=== PATIENT | male | born 1955 | race Caucasian/White ===

== ENCOUNTER 2017-08-07 08:01 | Day surgery (SDC) | payer OTHER ==
[2017-08-07] MEDS ORDERED: LIDOCAINE HCL 2% 100 MG/5 ML IJ ONE (08:02)
[2017-08-07] MEDS ORDERED: Xylocaine-Mpf 2 ML IJ ONE (08:02)
[2017-08-07] MEDS ORDERED: Marcaine 0.5% SDV 10 ML IJ ONE (08:02)
[2017-08-07] MEDS ORDERED: DIPRIVAN 200 MG/20 ML IV ONE (08:02)
[2017-08-07] MEDS ORDERED: Lactated Ringers 1,000 ML IV ONE (09:12)
--- NOTE | 2017-08-07 10:24 | XRAY ---
Indication: Left knee GNB. Intraoperative fluoroscopy was provided for 31 seconds. 6 digital spot images submitted for interpretation demonstrates 3 anterior needle tips projecting over the distal femur and 1 anterior needle tip projecting over the proximal medial tibia. Correlate with intraoperative findings/report.
--- NOTE | 2017-08-07 12:29 | XRAY ---
31 seconds fluoroscopy time in surgery for left knee GNB.
--- NOTE | 2017-08-08 07:40 | OP ---
AMENDED REPORT: DATE OF PROCEDURE: 08/07/2017 0854 SURGEON: Jennyfer Simpson D.O. PREOPERATIVE DIAGNOSES: Degenerative knee disease, osteoarthritis of the knee, knee pain. POSTOPERATIVE DIAGNOSES: Degenerative knee disease, osteoarthritis of the knee, knee pain. PROCEDURE PERFORMED: Left knee genicular nerve block at four levels of superior-medial genicular nerve, superior-lateral genicular nerve, inferior-medial genicular nerve and nerve branch to suprapatellar nerve block at four levels under fluoroscopic guidance. DESCRIPTION OF THE PROCEDURE: The patient was taken to the operating room and laid in the supine position on the table. The skin over the injection site was prepped and draped in sterile fashion. Under fluoroscope, the target bony structure site was visualized. Induction agent was given as per anesthesia while vital signs were monitored. Local anesthetic agent was introduced to anesthetize the skin in the subcutaneous tissue through the injection site. Under fluoroscopic guidance, a 20-gauge spinal needle was advanced into the target genicular nerves. The preservative free 0.5 cc of 1% lidocaine and 0.5 cc of 0.25 - 0.5% Marcaine were injected into the target nerve. After the needle was removed, the skin was cleansed with alcohol and then a bandage was applied. No complications or adverse consequences were observed. The patient was returned to the holding area until stabilized before being discharged to home. The preoperative pain level is 7 out of 10 and postoperative pain level 1 out of 10. The patient will be followed up within 10 days after the injection for re-evaluation.
== END 2017-08-07 09:38 | disposition home or self-care (01) ==
LOC: SDC-PAIN 08:01
PROVIDERS: ATTEND Internal Medicine
DX: M25.562 Pain in left knee (principal); M17.12 Unilateral primary osteoarthritis, left knee; Z79.891 Long term (current) use of opiate analgesic; M15.9 Polyosteoarthritis, unspecified
CPT/HCPCS: 64450; 73560; 77003; J2704

== ENCOUNTER 2020-10-19 17:14 | Emergency (ER) | payer OTHER, MEDICARE ==
[2020-10-19 18:28] LABS: Absolute Neutrophil Ct (ANC) 6.25 (1.4-6.9); BASOPHIL % 0.3 % (0.0-0.4); Basophil (Absolute #) 0.03 (0-0.4); Eosinophil % 1.4 % (0.00-5.0); Eosinophil (Absolute #) 0.14 (0-0.5); Hematocrit 34.5 % (42-50); Hemoglobin 10.2 gm/dl (12.5-18.0); Lymphocyte (Absolute #) 2.37 (1.0-4.6); Lymphocytes % 24.2 % (24.0-44.0); Mean Cell Volume 84.4 fl (78-100); Mean Corpuscular Hemoglobin 24.9 pg (26-32); Mean Corpuscular Hgb Concent. 29.6 g/dl (32-36); Mean Platelet Volume 9.4 fl (7.5-11.0); Monocyte (Absolute #) 1.01 (0.0-1.3); Monocytes % 10.3 % (0.0-12.0); Neutrophil % 63.8 % (36.0-66.0); Platelet Count 202 K/mm3 (150-450); Red Blood Count 4.09 M/mm3 (4.1-5.6); Red Cell Distribution Width 18.8 % (11.5-14.0); White Blood Count 9.8 K/mm3 (4.0-10.5)
[2020-10-19 18:31] LABS: INR 1.39 (0.8-3.0); PROTIME 16.4 SECONDS (9.4-12.5)
[2020-10-19 18:33] LABS: PTT 31.1 SECONDS (25.1-36.5)
[2020-10-19 18:36] LABS: ALKALINE PHOSPHATASE 68 U/L (38-126); ANION GAP 11.5 MEQ/L (5-15); BLOOD UREA NITROGEN 13 mg/dL (9-20); CHLORIDE 97 mmol/L (98-107); Calcium 9.3 mg/dL (8.4-10.2); Carbon Dioxide 30 mmol/L (22-30); Creatinine 1 0.91 mg/dL (0.66-1.25); EST GLOMERULAR FILTRATION RATE > 60.0 ML/MIN; Glucose 146 mg/dL (74-106); Potassium 4.2 mmol/L (3.5-5.1); SGOT/AST 32 U/L (17-59); SGPT/ALT 16 U/L (0-50); SODIUM 134 mmol/L (137-145); Total Protein 7.4 g/dL (6.3-8.2)
--- NOTE | 2020-10-19 20:10 | ERPHSYRPT ---
- History of Present Illness Time Seen by Provider: 10/19/20 17:45 Source: patient Exam Limitations: no limitations Patient Subjective Stated Complaint: Pt states that he fell backwards in the bathroom and hit his back of his head and his lateral left side injuring his rib s Triage Nursing Assessment: Pt brought to the ER by his , gamal wnl, rates pain 8/10 in his left side, states that he drags his feet and that caused him to fall, pt has many other abrasions scattered on his body which he states are from other accidents that he has, pulses normal, doesn't appear to be in any distress Physician History: Patient is a 65-year-old male presents to our emergency department for evaluation status post fall. Patient was in his home. Patient was in his bathroom and stepped backward. Patient states he typically drags his feet which caused him to stumble and fall backwards. Patient injured his left flank as we ll as hit his head. No loss of consciousness. No neck pain. Cervical spine cleared clinically. Patient is on Coumadin. Injury occurred just prior to arrival. Pain described as an ache that is localized. No radiation. Timing/Duration: today Severity: moderate Modifying Factors: Improves With: nothing Associated Symptoms: denies symptoms, abdominal pain, No nausea, No vomiting, No shortness of breath, No diaphoresis, No headaches, No syncope, No seizure Allergies/Adverse Reactions: NSAIDS (Non-Steroidal Anti-Inflamma Allergy (Verified 10/19/20 17:42) tramadol Allergy (Verified 10/19/20 17:42) Home Medications: Amlodipine Besylate 10 mg [Norvasc 10 MG] 10 mg PO DAILY 06/07/16 [History] Aspirin [Aspirin EC] 81 mg PO DAILY 06/07/16 [History] Budesonide/Formoterol Fumarate [Symbicort 160-4.5 Mcg Inhaler] 2 puff IH BID 06/07/16 [History] Carvedilol [Coreg] 25 mg PO DAILY 06/07/16 [History] Nitroglycerin 0.4 mg Tablet [Nitrostat 0.4 MG Tablet] 0.4 mg SL Q5MIN PRN MR X 3 PRN 06/07/16 [History] Testosterone Cypionate 200 mg IM .2WEEKS 06/07/16 [History] Trazodone HCl [Desyrel] 150 mg PO HS PRN PRN 06/07/16 [History] Venlafaxine HCl [Venlafaxine HCl ER] 150 mg PO DAILY 06/07/16 [History] Alendronate Sodium 70 mg [Fosamax 70 MG] 70 mg PO WEEKLY 09/03/16 [History] Isosorbide Mononitrate 30 mg [Imdur 30 MG] 30 mg PO DAILY 07/24/17 [History] PANTOPRAZOLE 40 mg Tablet [Protonix 40MG Tablet] 40 mg PO BID 07/24/17 [History] Furosemide 40 mg [Lasix 40 MG] 40 mg PO DAILY 08/08/20 [History] Potassium Chloride 10 meq PO DAILY 08/08/20 [History] Tamsulosin HCl 0.4 mg PO DAILY 08/08/20 [History] Hx Tetanus, Diphtheria Vaccination/Date Given: No Hx Influenza Vaccination/Date Given: No Hx Pneumococcal Vaccination/Date Given: No Travel Risk - International Travel Have you traveled outside of the country in past 3 weeks: No - Coronavirus Screening Are you exhibiting any of the following symptoms?: No Close contact with a COVID-19 positive Pt in past 14-21 Days: No - Vaccine Status Have you recieved a Covid-19 vaccination: No - Review of Systems Constitutional: No Symptoms, No Fever, No Chills Eyes: No Symptoms Ears, Nose, & Throat: No Symptoms Respiratory: No Symptoms, No Cough, No Dyspnea Cardiac: No Symptoms, No Chest Pain, No Edema, No Syncope Abdominal/Gastrointestinal: No Symptoms, No Abdominal Pain, No Nausea, No Vomiting, No Diarrhea Genitourinary Symptoms: No Symptoms, No Dysuria Musculoskeletal: No Symptoms, No Back Pain, No Neck Pain Skin: No Symptoms, No Rash Neurological: No Symptoms, No Dizziness, No Focal Weakness, No Sensory Changes Psychological: No Symptoms Endocrine: No Symptoms Hematologic/Lymphatic: No Symptoms Immunological/Allergic: No Symptoms All Other Systems: Reviewed and Negative - Past Medical History Pertinent Past Medical History: Yes Neurological History: No Pertinent History ENT History: No Pertinent History Cardiac History: Coronary Artery Disease, High Cholesterol, Hypertension Respiratory History: Asthma, COPD Endocrine Medical History: Diabetes Type II Musculoskeletal History: Arthritis GI Medical History: GERD History: Other Psycho-Social History: Anxiety Male Reproductive Disorders: No Pertinent History - Past Surgical History Past Surgical History: Yes Other Surgical History: tumor cut off nose. vasectomy. spine. left hand - Social History Smoking Status: Current every day smoker How long have you smoked: years Exposure to second hand smoke: Yes Drug Use: marijuana, cocaine Patient Lives Alone: No - Nursing Vital Signs Nursing Vital Signs: Initial Vital Signs Pulse Rate 100 H 10/19/20 17:33 Blood Pressure 127/78 10/19/20 17:33 O2 Sat by Pulse Oximetry 91 L 10/19/20 17:33 Pain Scale Pain Intensity 8 - Physical Exam General Appearance: no apparent distress, alert Eye Exam: PERRL/EOMI, eyes nml inspection Ears, Nose, Throat Exam: normal ENT inspection, TMs normal, pharynx normal, moist mucous membranes Neck Exam: normal inspection, non-tender, supple, full range of motion Respiratory Exam: normal breath sounds, lungs clear, No respiratory distress Cardiovascular Exam: regular rate/rhythm, normal heart sounds, normal peripheral pulses Gastrointestinal/Abdomen Exam: soft, normal bowel sounds, other (Tenderness to palpation along the left flank. Negative [place] sign. Negative Muller Alcaraz sign.), No tenderness, No mass Back Exam: normal inspection, normal range of motion, No CVA tenderness, No vertebral tenderness Extremity Exam: normal inspection, normal range of motion, pelvis stable Neurologic Exam: alert, oriented x 3, cooperative, normal mood/affect, nml cerebellar function, nml station & gait, sensation nml, No motor deficits Skin Exam: normal color, warm, dry, No rash Lymphatic Exam: No adenopathy SpO2 Interpretation: normal SpO2: 91 O2 Delivery: Room Air - CT Exams Abdomen/Pelvis CT Interpretation: Tele-radiologist Report (New ruptured spleen with moderate abdomen/pelvis free fluid/blood. Discussed with Dr. García) Head CT Interpretation: Tele-radiologist Report (Stable nonacute senile brain and old left basal ganglia lacunar infarct compared to 08/08/2020.) Ordered Tests: Active Orders 24 hr Category Date Time Status Assembly Operator STAT Care 10/19/20 17:59 Active EKG-ER Only STAT Care 10/19/20 17:58 Active IV Insertion STAT Care 10/19/20 17:58 Active Pulse Oximetry (ED) STAT Care 10/19/20 17:58 Active ABDOMEN AND PELVIS W CONTRAST [CT] Stat Exams 10/19/20 18:00 Taken HEAD WITHOUT CONTRAST [CT] Stat Exams 10/19/20 18:00 Taken CBC W DIFF Stat Lab 10/19/20 18:24 Completed CMP Stat Lab 10/19/20 18:24 Completed PROTIME WITH INR Stat Lab 10/19/20 18:24 Completed PTT Stat Lab 10/19/20 18:24 Completed TROPONIN Q3H Lab 10/19/20 18:24 Completed TROPONIN Q3H Lab 10/19/20 21:00 Ordered TROPONIN Q3H Lab 10/20/20 00:00 Ordered TROPONIN Q3H Lab 10/20/20 03:00 Ordered TROPONIN Q3H Lab 10/20/20 06:00 Ordered UA W/RFX UR CULTURE Stat Lab 10/19/20 17:59 Ordered Medication Summary Generic Name Dose Route Start Last Admin Trade Name Freq PRN Reason Stop Dose Admin Sodium Chloride 1,000 mls @ 999 mls/hr 10/19/20 20:22 Sodium Chloride 0.9% 1000 Ml IV 10/19/20 21:22 .Q1H1M STA Discontinued Medications Generic Name Dose Route Start Last Admin Trade Name Freq PRN Reason Stop Dose Admin Sodium Chloride Confirm 10/19/20 20:22 Sodium Chloride 0.9% 1000 Ml Administered 10/19/20 20:23 Dose 1,000 mls @ ud .ROUTE .STK-MED ONE Lab/Rad Data: Laboratory Result Diagrams 10/19/20 18:24 10/19/20 18:24 Laboratory Results 10/19/20 10/19/20 10/19/20 Range/Units 18:24 18:24 18:24 WBC (4.0-10.5) K/mm3 RBC (4.1-5.6) M/mm3 Hgb (12.5-18.0) gm/dl Hct (42-50) % MCV (78-100) fl MCH (26-32) pg MCHC (32-36) g/dl RDW (11.5-14.0) % Plt Count (150-450) K/mm3 MPV (7.5-11.0) fl Gran % (36.0-66.0) % Eos # (Auto) (0-0.5) Absolute Lymphs (auto) (1.0-4.6) Absolute Monos (auto) (0.0-1.3) Lymphocytes % (24.0-44.0) % Monocytes % (0.0-12.0) % Eosinophils % (0.00-5.0) % Basophils % (0.0-0.4) % Absolute Granulocytes (1.4-6.9) Basophils # (0-0.4) PT 16.4 H (9.4-12.5) SECONDS INR 1.39 (0.8-3.0) APTT 31.1 (25.1-36.5) SECONDS Sodium 134 L (137-145) mmol/L Potassium 4.2 (3.5-5.1) mmol/L Chloride 97 L (98-107) mmol/L Carbon Dioxide 30 (22-30) mmol/L Anion Gap 11.5 (5-15) MEQ/L BUN 13 (9-20) mg/dL Creatinine 0.91 (0.66-1.25) mg/dL Estimated GFR > 60.0 ML/MIN Glucose 146 H (74-106) mg/dL Calcium 9.3 (8.4-10.2) mg/dL Total Bilirubin 1.00 (0.2-1.3) mg/dL AST 32 (17-59) U/L ALT 16 (0-50) U/L Alkaline Phosphatase 68 (38-126) U/L Troponin I 0.043 H* (0.000-0.034) ng/mL Serum Total Protein 7.4 (6.3-8.2) g/dL Albumin 4.0 (3.5-5.0) g/dL 10/19/20 Range/Units 18:24 WBC 9.8 (4.0-10.5) K/mm3 RBC 4.09 L (4.1-5.6) M/mm3 Hgb 10.2 L (12.5-18.0) gm/dl Hct 34.5 L (42-50) % MCV 84.4 (78-100) fl MCH 24.9 L (26-32) pg MCHC 29.6 L (32-36) g/dl RDW 18.8 H (11.5-14.0) % Plt Count 202 (150-450) K/mm3 MPV 9.4 (7.5-11.0) fl Gran % 63.8 (36.0-66.0) % Eos # (Auto) 0.14 (0-0.5) Absolute Lymphs (auto) 2.37 (1.0-4.6) Absolute Monos (auto) 1.01 (0.0-1.3) Lymphocytes % 24.2 (24.0-44.0) % Monocytes % 10.3 (0.0-12.0) % Eosinophils % 1.4 (0.00-5.0) % Basophils % 0.3 (0.0-0.4) % Absolute Granulocytes 6.25 (1.4-6.9) Basophils # 0.03 (0-0.4) PT (9.4-12.5) SECONDS INR (0.8-3.0) APTT (25.1-36.5) SECONDS Sodium (137-145) mmol/L Potassium (3.5-5.1) mmol/L Chloride (98-107) mmol/L Carbon Dioxide (22-30) mmol/L Anion Gap (5-15) MEQ/L BUN (9-20) mg/dL Creatinine (0.66-1.25) mg/dL Estimated GFR ML/MIN Glucose (74-106) mg/dL Calcium (8.4-10.2) mg/dL Total Bilirubin (0.2-1.3) mg/dL AST (17-59) U/L ALT (0-50) U/L Alkaline Phosphatase (38-126) U/L Troponin I (0.000-0.034) ng/mL Serum Total Protein (6.3-8.2) g/dL Albumin (3.5-5.0) g/dL - Progress Progress: improved Progress Note: Patient 65-year-old male presents to our ED status post fall. Patient has left-sided flank pain. CT head negative. CT abdomen pelvis reveals a left splenic injury with free fluid in the pelvis. Type and screen ordered. IV fluids ordered. Case discussed with trauma surgeon who reviewed the CT scan. She advises immediate transfer at this time. She does not want us to wait for blood transfusion. Type and screen performed. Patient informed of findings plan of care. He agrees to transfer to [facility] for further evaluation and treatment. at bedside. They voiced no other complaints concerns at this time. 10/19/20 20:26 Counseled pt/family regarding: lab results, diagnosis, rad results - Departure Departure Disposition: Transfer Clinical Impression: Ruptured spleen, Elevated troponin, Anemia Condition: Stable Critical Care Time: No Referrals: BATOOL KIMBROUGH [Primary Care Provider] -
[2020-10-19] MEDS ORDERED: Sodium Chloride 0.9% 1000 ML 1,000 ML IV STA (20:22)
[2020-10-19] MEDS ORDERED: Sodium Chloride 0.9% 1000 ML 1,000 ML ONE (20:22)
[2020-10-19 20:53] VITALS: BP 119/88; PULSE 126; O2SAT 94
--- NOTE | 2020-10-20 08:37 | XRAY ---
Indication: Right head trauma following fall. Multiple contiguous axial images obtained through the head without contrast. Comparison: August 08, 2020. There remains age-appropriate global atrophy and old left basal ganglia lacunar infarct. No acute intracranial hemorrhage, abnormal extra-axial fluid collection, or mass effect. Fourth ventricle is midline without hydrocephalus. Bony calvarium intact. Visualized paranasal sinuses and mastoid air cells are clear. Impression: Age-related atrophy and old left posterior ganglia lacunar infarct. No new/acute intracranial abnormalities.
--- NOTE | 2020-10-20 08:41 | XRAY ---
Indication: Left abdomen/flank pain following fall. Multiple contiguous axial images obtained through the abdomen and pelvis using 80 cc Isovue 370 contrast. Comparison: August 08, 2020. Lung bases again demonstrates minimal bilateral subsegmental atelectasis/scarring and small right middle lobe calcified granuloma. No infiltrate or effusion. Heart remains enlarged. Noncontrasted stomach and bowel loops nonobstructed with normal appendix. New ruptured spleen with mild/moderate free fluid/blood throughout the abdomen and pelvis. No free air. Stable small bilateral renal cysts. Remaining liver, gallbladder, pancreas, adrenal glands, kidneys, ureters, and bladder are unremarkable. Again moderate scattered aortoiliac calcifications without AAA. Osseous structures intact again with osteopenia, mild/moderate multilevel thoracolumbar degenerative spondylosis, and old left 10 rib fracture. Impression: 1. New ruptured spleen with free fluid/blood throughout the abdomen and pelvis. 2. Again incidental cardiomegaly, bilateral renal cysts, arteriosclerotic disease, and chronic bony findings. Comment: Immediate telephone report was given to the ordering clinician, Dr. Barraza at 1957 hrs. on October 19, 2020
== END 2020-10-19 20:54 | disposition short-term general hospital (02) ==
LOC: ED 17:14
DX: S36.09XA Other injury of spleen, initial encounter (principal); R77.8 Other specified abnormalities of plasma proteins; D64.9 Anemia, unspecified; R10.9 Unspecified abdominal pain; Z79.899 Other long term (current) drug therapy; Z79.01 Long term (current) use of anticoagulants; W01.0XXA Fall on same level from slipping, tripping and stumbling without subsequent striking against object, initial encounter; Y92.012 Bathroom of single-family (private) house as the place of occurrence of the external cause; I25.10 Atherosclerotic heart disease of native coronary artery without angina pectoris; E78.00 Pure hypercholesterolemia, unspecified; I10 Essential (primary) hypertension; E11.9 Type 2 diabetes mellitus without complications; J44.9 Chronic obstructive pulmonary disease, unspecified
CPT/HCPCS: 36415; 70450; 74177; 80053; 84484; 85025; 85610; 85730; 96360; 99284

== ENCOUNTER 2020-12-14 16:07 | Emergency (ER) | payer MEDICARE, OTHER ==
--- NOTE | 2020-12-14 16:31 | ERPHSYRPT ---
- History of Present Illness Time Seen by Provider: 12/14/20 16:30 Source: patient Exam Limitations: no limitations Physician History: Patient is a 65-year-old male with a history of skin cancer presents to our ED with the lesion to his right cheondoism. Patient states the lesion started out as a pimple. Symptoms started 2 weeks ago. Patient states he popped it and observed a 2 cm lesion. The lesion drained. Patient became concerned for the possibility of infection. No trauma. No fever no headache. No nausea or vomiting. Patient is a smoker. Timing/Duration: today Severity: moderate Modifying Factors: Improves With: nothing Associated Symptoms: denies symptoms Allergies/Adverse Reactions: NSAIDS (Non-Steroidal Anti-Inflamma Allergy (Verified 12/14/20 16:27) tramadol Allergy (Verified 12/14/20 16:27) Home Medications: Amlodipine Besylate 10 mg [Norvasc 10 MG] 10 mg PO DAILY 06/07/16 [History] Aspirin [Aspirin EC] 81 mg PO DAILY 06/07/16 [History] Budesonide/Formoterol Fumarate [Symbicort 160-4.5 Mcg Inhaler] 2 puff IH BID 06/07/16 [History] Carvedilol [Coreg] 25 mg PO DAILY 06/07/16 [History] Nitroglycerin 0.4 mg Tablet [Nitrostat 0.4 MG Tablet] 0.4 mg SL Q5MIN PRN MR X 3 PRN 06/07/16 [History] Testosterone Cypionate 200 mg IM .2WEEKS 06/07/16 [History] Trazodone HCl [Desyrel] 150 mg PO HS PRN PRN 06/07/16 [History] Venlafaxine HCl [Venlafaxine HCl ER] 150 mg PO DAILY 06/07/16 [History] Alendronate Sodium 70 mg [Fosamax 70 MG] 70 mg PO WEEKLY 09/03/16 [History] Isosorbide Mononitrate 30 mg [Imdur 30 MG] 30 mg PO DAILY 07/24/17 [History] PANTOPRAZOLE 40 mg Tablet [Protonix 40MG Tablet] 40 mg PO BID 07/24/17 [History] Furosemide 40 mg [Lasix 40 MG] 40 mg PO DAILY 08/08/20 [History] Potassium Chloride 10 meq PO DAILY 08/08/20 [History] Tamsulosin HCl 0.4 mg PO DAILY 08/08/20 [History] Hx Tetanus, Diphtheria Vaccination/Date Given: No Hx Influenza Vaccination/Date Given: No Hx Pneumococcal Vaccination/Date Given: No Travel Risk - Vaccine Status Have you recieved a Covid-19 vaccination: No - Review of Systems Constitutional: No Symptoms, No Fever, No Chills Eyes: No Symptoms Ears, Nose, & Throat: No Symptoms Respiratory: No Symptoms, No Cough, No Dyspnea Cardiac: No Symptoms, No Chest Pain, No Edema, No Syncope Abdominal/Gastrointestinal: No Symptoms, No Abdominal Pain, No Nausea, No Vomiting, No Diarrhea Genitourinary Symptoms: No Symptoms, No Dysuria Musculoskeletal: No Symptoms, No Back Pain, No Neck Pain Skin: No Symptoms, No Rash Neurological: No Symptoms, No Dizziness, No Focal Weakness, No Sensory Changes Psychological: No Symptoms Endocrine: No Symptoms Hematologic/Lymphatic: No Symptoms Immunological/Allergic: No Symptoms All Other Systems: Reviewed and Negative - Past Medical History Pertinent Past Medical History: Yes Neurological History: No Pertinent History ENT History: No Pertinent History Cardiac History: Coronary Artery Disease, High Cholesterol, Hypertension Respiratory History: Asthma, COPD Endocrine Medical History: Diabetes Type II Musculoskeletal History: Arthritis GI Medical History: GERD History: Other Psycho-Social History: Anxiety Male Reproductive Disorders: No Pertinent History - Past Surgical History Past Surgical History: Yes Other Surgical History: tumor cut off nose. vasectomy. spine. left hand - Social History Smoking Status: Current every day smoker How long have you smoked: years Exposure to second hand smoke: Yes Drug Use: marijuana, cocaine Patient Lives Alone: No - Nursing Vital Signs Nursing Vital Signs: Initial Vital Signs Temperature 97.2 F 12/14/20 16:16 Pulse Rate 83 12/14/20 16:16 Blood Pressure 117/74 12/14/20 16:16 O2 Sat by Pulse Oximetry 94 L 12/14/20 16:16 Pain Scale Pain Intensity 0 - Physical Exam General Appearance: no apparent distress, alert, other (Approximately 1 cm diameter by 0.5 cm depth lesion to right cheondoism.) Eye Exam: PERRL/EOMI, eyes nml inspection Ears, Nose, Throat Exam: normal ENT inspection, TMs normal, pharynx normal, moist mucous membranes Neck Exam: normal inspection, non-tender, supple, full range of motion Respiratory Exam: normal breath sounds, lungs clear, No respiratory distress Cardiovascular Exam: regular rate/rhythm, normal heart sounds, normal peripheral pulses Gastrointestinal/Abdomen Exam: soft, normal bowel sounds, No tenderness, No mass Back Exam: normal inspection, normal range of motion, No CVA tenderness, No vertebral tenderness Extremity Exam: normal inspection, normal range of motion, pelvis stable Neurologic Exam: alert, oriented x 3, cooperative, normal mood/affect, sensation nml, No motor deficits Skin Exam: normal color, warm, dry, No rash Lymphatic Exam: No adenopathy SpO2 Interpretation: normal SpO2: 94 O2 Delivery: Room Air - Course Nursing assessment & vital signs reviewed: Yes Ordered Tests: Active Orders 24 hr Category Date Time Status CULTURE,WOUND Stat Lab 12/14/20 16:27 Received - Progress Progress: improved Progress Note: Wound culture obtained. We intended to provide a prescription for Bactrim however patient currently on potassium replacement. Bactrim may cause a rise in his potassium. We will treat with KELFEX instead. 12/14/20 16:29 Patient's wound appears to be an infected basal cell carcinoma. However biopsy of the wound edge may be required. Patient will be referred back to his primary care physician. Patient advised that he needs a referral to dermatology for further evaluation of this wound. 12/14/20 16:30 12/14/20 16:34 Patient provided a referral to senior cost accountant Dr. Robison. Portions of this note were created with voice recognition technology. There may be grammatical, spelling, punctuation or sound alike errors 12/14/20 16:35 Sterile wet-to-dry dressing placed on wound. 12/14/20 17:00 Wound culture obtained. Results pending. 12/14/20 17:04 Counseled pt/family regarding: diagnosis, need for follow-up, smoking cessation - Departure Departure Disposition: Home Clinical Impression: Wound abscess Condition: Stable Critical Care Time: No Referrals: BATOOL KIMBROUGH [Primary Care Provider] - Additional Instructions: Discharge/Care Plan JONATAN ZAMBRANO was seen on 12/14/20 in the Emergency Room. The patient was counseled regarding Diagnosis,Lab results, Imaging studies, need for follow up and when to return to the Emergency Room. Prescriptions given: Discharge Note I have spoken with the patient and/or caregivers. I have explained the patient's condition, diagnosis and treatment plan based on the information available to me at this time. I have answered the patient's and/or caregiver's questions and addressed any concerns. The patient and/or caregivers have as good understanding of the patient's diagnosis, condition and treatment plan as can be expected at this point. The vital signs have been stable. The patient's condition is stable and appropriate for discharge from the emergency department. The patient will pursue further outpatient evaluation with the primary care physician or other designated or consulting physician as outlined in the discharge instructions. The patient and/or caregivers are agreeable to this plan of care and follow-up instructions have been explained in detail. The patient and/or caregivers have received these instruction. The patient/and or caregivers are aware that any significant change in condition or worsening of symptoms should prompt an immediate return to this or the closest emergency department or call 911. Prescriptions: Cephalexin Mh 500 mg [Keflex 500 mg] 500 mg PO TID 7 Days #21 cap
[2020-12-14 17:16] VITALS: BP 112/78; PULSE 86; O2SAT 99
== END 2020-12-14 17:16 | disposition home or self-care (01) ==
LOC: ED 16:07
DX: T81.49XA Infection following a procedure, other surgical site, initial encounter (principal); Z85.828 Personal history of other malignant neoplasm of skin; Z79.899 Other long term (current) drug therapy; Z72.0 Tobacco use; I10 Essential (primary) hypertension; E78.00 Pure hypercholesterolemia, unspecified; I25.10 Atherosclerotic heart disease of native coronary artery without angina pectoris; J44.9 Chronic obstructive pulmonary disease, unspecified; E11.9 Type 2 diabetes mellitus without complications; M19.90 Unspecified osteoarthritis, unspecified site
CPT/HCPCS: 87070; 87077; 87186; 99283